=== PATIENT | male | born 1950 | race Caucasian/White ===

== ENCOUNTER 2016-09-26 15:59 | Emergency (ER) | payer MEDICARE ==
[~2016-09-26] VITALS: Ht 179.1 cm; Wt 96.2 kg
[2016-09-26 16:54] VITALS: BP 147/81
[2016-09-26] MEDS ORDERED: FUROSEMIDE 20 MG/2 ML VIAL IV ONE (17:15)
--- NOTE | 2016-09-26 18:53 | RAD ---
PROCEDURE Bilateral lower extremity venous Doppler sonogram. HISTORY Swelling. TECHNIQUE Grayscale and color Doppler sonographic imaging of the lower extremity veins with spectral analysis was performed. COMPARISON None. FINDINGS There is normal color flow, normal compressibility and there are normal spectral waveforms within the lower extremity veins. IMPRESSION No Doppler evidence of lower extremity venous thrombosis. Electronically signed by: Lillie Canada (Sep 26, 2016 18:52:16)
[2016-09-26 19:01] LABS: BASO # 0.1 x10^3/uL (0.0-0.2); BASO % 1 % (0-3); EOS % 3 % (0-3); HEMATOCRIT 46.4 % (39.0-53.0); HEMOGLOBIN 15.4 g/dL (13.0-17.5); LYMPH # 1.5 x10^3/uL (1.0-4.8); LYMPH % 21 % (24-48); MEAN CORPUSCULAR HEMOGLOBIN 31 pg (25-35); MEAN CORPUSCULAR HGB CONC 33 g/dL (31-37); MEAN CORPUSCULAR VOLUME 92 fL (79-100); MONO % 12 % (0-9); NEUT % 63 % (31-73); PLATELET COUNT 155 x10^3/uL (140-400); RED BLOOD COUNT 5.05 x10^6/uL (4.30-5.70); RED CELL DISTRIBUTION WIDTH 13.5 % (11.5-14.5)
[2016-09-26 19:12] LABS: CALCIUM 8.5 mg/dL (8.5-10.1); CREATININE 1.1 mg/dL (0.7-1.3); GFR 66.6; POTASSIUM 3.9 mmol/L (3.5-5.1)
[2016-09-26] MEDS ORDERED: FUROSEMIDE 40 MG TABLET PO ONE (19:15)
[2016-09-26 19:17] LABS: ALBUMIN 3.4 g/dL (3.4-5.0); DIRECT BILIRUBIN 0.1 mg/dL (0.0-0.2); TOTAL BILIRUBIN 0.5 mg/dL (0.2-1.0); TOTAL PROTEIN 6.3 g/dL (6.4-8.2)
--- NOTE | 2016-09-26 19:47 | PHYS DOC ---
Past Medical History Past Medical History: High Cholesterol, Hypertension Past Surgical History: Other Alcohol Use: Occasionally Drug Use: None Adult General Chief Complaint Chief Complaint: LOWER EXTREMITY EDEMA HPI HPI Patient is a 66 year old gentleman who presents to the ER today secondary to lower some edema that he noticed. Patient reports that he recently had to fly in from [place] secondary to his mother passing away on . Patient reports that he's been sedentary for approximately 36 hours now between the flight and driving. Patient reports that he's had pitting edema. Patient denies any shortness of breath orthopnea PND. Patient denies any chest pain. Patient denies any cough. Patient denies any change in meds. Patient denies any history of CHF. Patient denies any history of PE or DVT in the past. Pts PE was significant for lower semi-edema bilaterally. Patient has about 1-2+ pitting edema. Patient has no calf tenderness. Patient's lungs are clear. No wheezing rales or rhonchi. Patient's heart was regular rate. No S3 or S4. VD. Patient's workup in the ER has been unremarkable. The patient's ultrasound was negative for DVT. Patient's labs were all negative. Patient's troponin, CMP, CBC and BMP were all within normal limits. Patient be discharged home. Patient was given a dose of Lasix in the ED. Patient's symptoms are likely secondary to dependent edema. Patient be instructed to elevate his lower extremities and will be given instructions towards DVT prevention. Review of Systems Review of Systems Constitutional: Denies fever or chills [] Eyes: Denies change in visual acuity, redness, or eye pain [] All other review systems are negative except as documented in the history of present illness portion. Current Medications Current Medications Current Medications Medications (Trade) Dose Ordered Sig/Mariano Start Time Stop Time Status Last Admin Dose Admin Furosemide (Lasix) 20 mg 1X ONCE 09/26/16 19:15 09/26/16 19:17 DC 09/26/16 19:26 20 MG Allergies Allergies Allergies Coded Allergies Type Severity Reaction Last Updated Verified No Known Drug Allergies 09/26/16 No Physical Exam Physical Exam Constitutional: Well developed, well nourished, no acute distress, non-toxic appearance. [] HENT: Normocephalic, atraumatic, bilateral external ears normal, oropharynx moist, no oral exudates, nose normal. [] Eyes: PERRLA, EOMI, conjunctiva normal, no discharge. [] Neck: Normal range of motion, no tenderness, supple, no stridor. [] Cardiovascular:Heart rate regular rhythm, no murmur [] Lungs & Thorax: Bilateral breath sounds clear to auscultation [] Abdomen: Bowel sounds normal, soft, no tenderness, no masses, no pulsatile masses. [] Skin: Warm, dry, no erythema, no rash. [] Back: No tenderness, no CVA tenderness. [] Extremities: No tenderness, no cyanosis, no clubbing, ROM intact, 2+ edema Neurologic: Alert and oriented X 3, normal motor function, normal sensory function, no focal deficits noted. [] Psychologic: Affect normal, judgement normal, mood normal. [] Current Patient Data Vital Signs Vital Signs Date Time Temp Pulse Resp B/P Pulse Ox O2 Delivery O2 Flow Rate FiO2 09/26/16 16:54 98.2 73 18 147/81 96 Room Air 98.2 Lab Values Laboratory Tests Test 09/26/16 18:48 White Blood Count 7.0x10^3/uL (4.0-11.0) Red Blood Count 5.05x10^6/uL (4.30-5.70) Hemoglobin 15.4g/dL (13.0-17.5) Hematocrit 46.4% (39.0-53.0) Mean Corpuscular Volume 92fL (79-100) Mean Corpuscular Hemoglobin 31pg (25-35) Mean Corpuscular Hemoglobin Concent 33g/dL (31-37) Red Cell Distribution Width 13.5% (11.5-14.5) Platelet Count 155x10^3/uL (140-400) Neutrophils (%) (Auto) 63% (31-73) Lymphocytes (%) (Auto) 21% (24-48) L Monocytes (%) (Auto) 12% (0-9) H Eosinophils (%) (Auto) 3% (0-3) Basophils (%) (Auto) 1% (0-3) Neutrophils # (Auto) 4.4x10^3uL (1.8-7.7) Lymphocytes # (Auto) 1.5x10^3/uL (1.0-4.8) Monocytes # (Auto) 0.9x10^3/uL (0.0-1.1) Eosinophils # (Auto) 0.2x10^3/uL (0.0-0.7) Basophils # (Auto) 0.1x10^3/uL (0.0-0.2) Sodium Level 144mmol/L (136-145) Potassium Level 3.9mmol/L (3.5-5.1) Chloride Level 108mmol/L (98-107) H Carbon Dioxide Level 28mmol/L (21-32) Anion Gap 8 (6-14) Blood Urea Nitrogen 25mg/dL (8-26) Creatinine 1.1mg/dL (0.7-1.3) Estimated GFR (Cockcroft-Gault) 66.6 Glucose Level 92mg/dL (70-99) Calcium Level 8.5mg/dL (8.5-10.1) Total Bilirubin 0.5mg/dL (0.2-1.0) Direct Bilirubin 0.1mg/dL (0.0-0.2) Aspartate Amino Transferase (AST) 22U/L (15-37) Alanine Aminotransferase (ALT) 28U/L (16-63) Alkaline Phosphatase 80U/L (46-116) Troponin I Quantitative < 0.017ng/mL (0.000-0.055) ZO-[id number]-[id number]-Type Natriuretic Peptide 119pg/mL (0-124) Total Protein 6.3g/dL (6.4-8.2) L Albumin 3.4g/dL (3.4-5.0) Laboratory Tests 09/26/16 18:48 Laboratory Tests 09/26/16 18:48 EKG EKG Normal sinus rhythm no STEMI interpreted by Doctor Durham [] Radiology/Procedures Radiology/Procedures [] Course & Med Decision Making Course & Med Decision Making Pertinent Labs and Imaging studies reviewed. (See chart for details) [] Dragon Disclaimer Dragon Disclaimer This electronic medical record was generated, in whole or in part, using a voice recognition dictation system. Departure Departure Impression: Primary Impression: Peripheral edema Disposition: 01 HOME, SELF-CARE Condition: STABLE Referrals: UNKNOWN PCP NAME (PCP) Patient Instructions: Peripheral Edema Additional Instructions: Please follow up with her family doctor when he returns to [place]. During the airplane ride please try to get up and walk around at least once every 30- 45 minutes. Please keep her legs elevated we are at home. Return to the ER if any shortness of breath or any other concerns. MICHELLE DURHAM MD Sep 26, 2016 19:47
[2016-09-26 19:48] LABS: BILIRUBIN,URINE NEGATIVE (NEG); GLUCOSE,URINE NEGATIVE (NEG); NITRITE,URINE NEGATIVE (NEG); PROTEIN,URINE NEGATIVE (NEG-TRACE)
[2016-09-26 20:04] LABS: BACTERIA,URINE 0 /HPF (0-FEW); RBC,URINE OCC /HPF (0-2); SQUAMOUS EPITHELIAL CELL,UR FEW /LPF; WBC,URINE 0 /HPF (0-4)
--- NOTE | 2016-09-27 08:01 | RAD ---
Portable chest, 09/26/2016: History: Lower extremity edema The heart size and pulmonary vascularity are normal. No pulmonary infiltrates are seen. There is no evidence of pleural fluid. IMPRESSION: No acute cardiopulmonary abnormality is detected.
--- NOTE | 2016-09-27 10:24 | EKG ---
[facility] [address] [place] [address] Test Date: 2016-09-26 Test Time: 17:23:50 Pat Name: CHEYANNE HERNDON Department: Room: Gender: M [employer]: : [id number] Requested By: MICHELLE NUNN Order Number: [id number] Reading MD: Measurements Intervals [place] Rate: 73 P: 26 IL: 172 QRS: 30 QRSD: 86 T: 10 QT: 378 QTc: 420 Interpretive Statements SINUS RHYTHM QRS(T) CONTOUR ABNORMALITY CONSIDER ANTEROLATERAL MYOCARDIAL DAMAGE POSSIBLY ABNORMAL ECG RI6.01 Compared to ECG 01/23/2013 01:56:42 No significant changes
== END 2016-09-26 20:00 | disposition home or self-care (01) ==
LOC: ER 15:59
DX: R60.0 Localized edema (principal); I10 Essential (primary) hypertension; E78.00 Pure hypercholesterolemia, unspecified
CPT/HCPCS: 36415; 71010; 80048; 80076; 81001; 83880; 84484; 85027; 93005; 93970; 99285-25